=== PATIENT | male | born 1945 | race Caucasian/White ===

== ENCOUNTER 2016-10-20 07:59 | Outpatient (CLI) | payer MEDICARE, OTHER ==
[2016-10-20 08:56] LABS: eGFR (African) > 60; eGFR (Non-African) > 60
== END 2016-10-20 08:00 ==
LOC: LAB 07:59
PROVIDERS: ATTEND Internal Medicine
DX: I10 Essential (primary) hypertension (principal); E78.5 Hyperlipidemia, unspecified; R73.9 Hyperglycemia, unspecified; Z13.5 Encounter for screening for eye and ear disorders
CPT/HCPCS: 36415; 80053; 80061; 83036; 86803

== ENCOUNTER 2017-05-25 08:13 | Outpatient (CLI) | payer MEDICARE, OTHER | END 2017-05-25 08:14 | LOC: LAB 08:13 | PROVIDERS: ATTEND Internal Medicine | DX: R73.9 Hyperglycemia, unspecified (principal) | CPT/HCPCS: 36415; 83036 ==

== ENCOUNTER 2017-11-19 08:11 | Outpatient (CLI) | payer MEDICARE, OTHER ==
[2017-11-19 08:45] LABS: BASOPHILS % 0.7 (0.0-1.5); MEAN CORPUSCULAR HEMOGLOBIN 30.4 pg (28.0-34.0); MEAN CORPUSCULAR VOLUME 91.4 fl (80.0-100.0); MONOCYTES % 7.6 % (0.0-11.0); NEUTROPHILS # 4.3 # k/uL (1.4-7.7)
[2017-11-19 08:55] LABS: eGFR (Non-African) > 60
== END 2017-11-19 08:15 ==
LOC: LAB 08:11
PROVIDERS: ATTEND Internal Medicine
DX: E78.00 Pure hypercholesterolemia, unspecified (principal); I10 Essential (primary) hypertension; I73.9 Peripheral vascular disease, unspecified; R73.9 Hyperglycemia, unspecified
CPT/HCPCS: 36415; 80053; 80061; 83036; 85025

== ENCOUNTER 2018-05-24 07:47 | Outpatient (CLI) | payer MEDICARE, OTHER ==
[2018-05-24 08:26] LABS: BASOPHILS % 0.4 (0.0-1.5); EOSINOPHILS % 2.4 % (0.0-6.8); MEAN CORPUSCULAR HEMOGLOBIN 29.5 pg (28.0-34.0); MONOCYTES % 5.8 % (0.0-11.0); NEUTROPHILS # 4.6 # k/uL (1.4-7.7)
[2018-05-24 08:54] LABS: eGFR (Non-African) > 60
== END 2018-05-24 07:52 | disposition home or self-care (01) ==
LOC: LAB 07:47
PROVIDERS: ATTEND Internal Medicine
DX: I10 Essential (primary) hypertension (principal); E78.00 Pure hypercholesterolemia, unspecified; I73.9 Peripheral vascular disease, unspecified; R73.9 Hyperglycemia, unspecified
CPT/HCPCS: 36415; 80053; 80061; 83036; 85025

== ENCOUNTER 2018-12-08 08:25 | Outpatient (CLI) | payer MEDICARE, OTHER ==
[2018-12-08 09:03] LABS: eGFR (Non-African) > 60
== END 2018-12-08 08:27 ==
LOC: LAB 08:25
PROVIDERS: ATTEND Internal Medicine
DX: I10 Essential (primary) hypertension (principal)
CPT/HCPCS: 36415; 80048; 83036